=== PATIENT | male | born 1965 | race Caucasian/White ===

== ENCOUNTER 2017-02-20 08:39 | Emergency (ER) | payer OTHER ==
[2017-02-20 08:45] VITALS: BP 130/80; PULSE 76; TEMP 97.7; BMI 29.7
[2017-02-20] MEDS ORDERED: KETOROLAC TROMETHAMINE 60 MG/2 ML VIAL IM ONE (09:42)
--- NOTE | 2017-02-20 09:44 | PDOC ---
History of Present Illness - General Chief Complaint: Pain Stated Complaint: LT KNEE PAIN Time Seen by Provider: 02/20/17 09:05 History Source: Patient Exam Limitations: No Limitations - History of Present Illness Initial Comments: 02/21/17 16:29 My Chief Complaint: Left knee pain and swelling History of present illness: Patient is a 51-year-old male with a history of left osteoarthritis of his knee [employer]. Patient reports that yesterday while at work when trying to get up off the floor he felt a pain in his left knee. Patient woke today with swelling of his left knee and increased pain that radiates from left medial to the infra-patella area and medial aspect of the knee. Patient denies that his knee gives out on him or locks up on him. He reports increased pain with ambulation due to pain in his knee. Patient took Aleve at 3 AM. Patient denies any numbness of his left leg or any other injuries. Patient reports the pain currently is a 6 out of 10 when standing or trying to walk. Does not want anything for pain presently. Patient has an orthopedist Dr. Avery Sharp. 02/21/17 16:32 02/21/17 16:38 Occurred: reports: yesterday Severity: Yes: severe (left knee) Lower Extremity Pain Location: left: knee Method of Injury: Yes: twisted (when lying down yesterday at work ) Modifying Factors: improves with: immobilization Lower Ext. Injury Location - Specific Injury Location Knees: left swelling, left pain Extremity Pain Location - Extremity Pain Location Extremity Pain Locations: left: knee Past History - Past Medical History Allergies/Adverse Reactions: Allergies Allergy/AdvReac Type Severity Reaction Status Date / Time No Known Allergies Allergy Verified 02/20/17 08:45 Home Medications: Ambulatory Orders Naproxen [Naprosyn -] 500 mg PO BID PRN #14 tablet MDD 2 02/20/17 Other medical history: NONE - Psycho/Social/Smoking Cessation Hx Anxiety: No Suicidal Ideation: No Smoking Status: Yes Smoking History: Never smoked Number of Cigarettes Smoked Daily: 0 Hx Alcohol Use: Yes (SOCIAL) Drug/Substance Use Hx: No Substance Use Type: None Review of Systems - Review of Systems Able to Perform ROS?: Yes Constitutional: No: Symptoms Reported HEENTM: No: Symptoms Reported Respiratory: No: Symptoms reported Cardiac (ROS): No: Symptoms Reported ABD/GI: No: Symptoms Reported : No: Symptoms Reported Musculoskeletal: Yes: Joint Pain (left knee), Joint Swelling (left knee ) Integumentary: No: Symptoms Reported Neurological: No: Symptoms reported *Physical Exam - Vital Signs Last Vital Signs Temp Pulse Resp BP Pulse Ox 97.7 F 76 20 130/80 99 02/20/17 08:41 02/20/17 08:41 02/20/17 08:41 02/20/17 08:41 02/20/17 08:41 - Physical Exam General Appearance: Yes: Appropriately Dressed Respiratory/Chest: positive: Lungs Clear, Normal Breath Sounds. negative: Chest Tender, Respiratory Distress Cardiovascular: positive: Regular Rhythm, Regular Rate, S1, S2 Extremity: positive: Normal Capillary Refill, Normal Range of Motion (left knee ), Tender (left knee medially/laterally and infrapatella), Swelling (left knee ) , Other (negative anterior/posterior drawer, no crepitus ) Integumentary: positive: Normal Color. negative: Warm Neurologic: positive: Alert, Normal Response, Motor Strength 5/5 (left lower leg ), Responsive Procedures - Consent Consent obtained: From Patient - Splinting Splint Location: Left: Knee Pre-Proc Neuro Vasc Exam: normal Pre-Made Type: knee immobilizer Post-Proc Neuro Vasc Exam: normal Medical Decision Making - Medical Decision Making 02/20/17 10:30 Patient is a 51-year-old male with a history of left osteoarthritis of his knee [employer]. Patient reports that yesterday while at work when trying to get up off the floor he felt a pain in his left knee. Patient woke today with swelling of his left knee and increased pain that radiates from left medial to the infra-patella area and medial aspect of the knee. Patient denies that his knee gives out on him or locks up on him. She reports it just for occult to ambulate due to pain in his knee. Patient took Aleve at 3 AM. Patient denies any numbness of his left leg or any other injuries. Patient reports the pain currently is a 6 out of 10 when standing or trying to walk. Does not want anything for pain presently. Patient has an orthopedist Dr. Avery Sharp. PLAN: toradol 60 mg IM now xray left knee loss of bony density. Growth arrest line. [place] left knee immoblilizer crutches follow up with ortho today or tomorrow no work until cleared by orthopedist and occupational health naprosyn 500 mg bid prn pain # 14 tabs 02/20/17 10:33 02/21/17 16:33 02/21/17 16:38 02/21/17 16:40 *DC/Admit/Observation/Transfer Diagnosis at time of Disposition: Knee pain, left anterior - Discharge Dispostion Disposition: HOME Condition at time of disposition: Stable - Prescriptions Prescriptions: Naproxen [Naprosyn -] 500 mg PO BID PRN #14 tablet MDD 2 PRN Reason: Pain - Referrals Referrals: Kale Jerome MD [Primary Care Provider] - Avery Sharp [Non Staff, Medical] - - Patient Instructions Additional Instructions: Up with your orthopedist today or tomorrow Elevate her left leg as much as possible and apply ice for 15 minutes every hour Keep knee immobilizer on when ambulating and use crutches You may take acetaminophen or Tylenol as needed as directed by vulcan crewmember for pain in addition to medication ordered here today Emergency room if left knee becomes more swollen hot and red or any fever Patient voiced understanding of discharge instructions and all questions were answered - Post Discharge Activity Work/School Note: Back to Work
[2017-02-20] MEDS ORDERED: KETOROLAC TROMETHAMINE 60 MG/2 ML VIAL ONE (09:46)
== END 2017-02-20 10:40 | disposition home or self-care (01) ==
LOC: JERFT 08:39
PROC: 2W3RX1Z Immobilization of Left Lower Leg using Splint (ICD-10-PCS; principal; 2017-02-20)
DX: M25.562 Pain in left knee (principal)
CPT/HCPCS: 73562-TC-LT; 99282-25

== ENCOUNTER 2017-03-20 14:32 | Emergency (ER) | payer SELFPAY ==
[2017-03-20 14:46] VITALS: BP 118/72; PULSE 83; TEMP 97.9; BMI 30.2
--- NOTE | 2017-03-20 15:22 | PDOC ---
History of Present Illness - General Chief Complaint: Blood/Body Fluid Exposure SJR Stated Complaint: YPD/EXPOSURE Time Seen by Provider: 03/20/17 15:08 History Source: Patient Exam Limitations: No Limitations - History of Present Illness Initial Comments: 03/24/17 16:16 52 yr male [employer] sent to ER after being told he may have been exposed to asbestos at his job site. Pt has no cough no complaints. Past History - Past Medical History Allergies/Adverse Reactions: Allergies Allergy/AdvReac Type Severity Reaction Status Date / Time No Known Allergies Allergy Verified 03/20/17 14:42 Home Medications: Ambulatory Orders NK [No Known Home Medication] 03/20/17 Asthma: Yes - Psycho/Social/Smoking Cessation Hx Anxiety: No Suicidal Ideation: No Smoking Status: Yes Smoking History: Former smoker Have you smoked in the past 12 months: No Number of Cigarettes Smoked Daily: 0 Information on smoking cessation initiated: No Hx Alcohol Use: Yes (SOCIAL) Drug/Substance Use Hx: No Substance Use Type: None Review of Systems - Review of Systems Able to Perform ROS?: Yes Is the patient limited Welsh proficient: No Constitutional: No: Symptoms Reported HEENTM: No: Symptoms Reported Respiratory: No: Symptoms reported Cardiac (ROS): No: Symptoms Reported ABD/GI: No: Symptoms Reported : No: Symptoms Reported Musculoskeletal: No: Symptoms Reported Integumentary: No: Symptoms Reported Neurological: No: Symptoms reported *Physical Exam - Vital Signs Last Vital Signs Temp Pulse Resp BP Pulse Ox 97.9 F 83 19 118/72 98 03/20/17 14:42 03/20/17 14:42 03/20/17 14:42 03/20/17 14:42 03/20/17 14:42 - Physical Exam General Appearance: Yes: Nourished, Appropriately Dressed HEENT: positive: EOMI, ADDIE, Normal ENT Inspection, TMs Normal, Pharynx Normal Neck: positive: Supple. negative: Tender Respiratory/Chest: positive: Lungs Clear, Normal Breath Sounds Cardiovascular: positive: Regular Rhythm, Regular Rate Musculoskeletal: positive: Normal Inspection Extremity: positive: Normal Inspection, Normal Range of Motion Integumentary: positive: Normal Color, Dry, Warm Neurologic: positive: Fully Oriented, Alert, Normal Mood/Affect, Normal Response , Motor Strength 5/5 Medical Decision Making - Medical Decision Making 03/24/17 16:18 cc: exposed to asbestos pt refused CXR states he will follow with employee health as per dept policy vitals are stable pt has no fever no cough *DC/Admit/Observation/Transfer Diagnosis at time of Disposition: Asbestos exposure - Discharge Dispostion Disposition: HOME Condition at time of disposition: Good - Referrals - Patient Instructions Additional Instructions: follow with employee health as per department protocol follow with your primary care doctor as needed - Post Discharge Activity Work/School Note: Back to Work
== END 2017-03-20 15:33 | disposition home or self-care (01) ==
LOC: JERFT 14:32
DX: Z77.29 Contact with and (suspected) exposure to other hazardous substances (principal); Z87.891 Personal history of nicotine dependence
CPT/HCPCS: 99281-25